=== PATIENT | male | born 1960 | race Hispanic/Latino ===

== ENCOUNTER 2022-07-08 12:05 | Emergency (ER) | payer MEDICARE ==
[~2022-07-08] VITALS: Ht 167.6 cm; Wt 77.1 kg
[2022-07-08 12:15] VITALS: O2SAT 99
[2022-07-08] MEDS ORDERED: METHYLPREDNISOLONE SOD SUCC 125 MG/2ML VIAL IM STA (12:29)
[2022-07-08] MEDS ORDERED: HYDROCODONE/APAP 7.5MG-325MG 1 EA TAB PO ONE (12:30)
[2022-07-08] MEDS ORDERED: HYDROCODON-ACE1 EA12 PO (12:46)
== END 2022-07-08 12:56 | disposition home or self-care (01) ==
LOC: ER 12:11
DX: M25.572 Pain in left ankle and joints of left foot (principal); M25.571 Pain in right ankle and joints of right foot; M25.562 Pain in left knee; M25.561 Pain in right knee; M10.9 Gout, unspecified; I10 Essential (primary) hypertension; E11.9 Type 2 diabetes mellitus without complications; E78.5 Hyperlipidemia, unspecified
CPT/HCPCS: 99282; J2930